=== PATIENT | male | born 1990 | race Caucasian/White ===

== ENCOUNTER 2024-04-01 11:09 | Emergency (ER) | payer OTHER, SELFPAY ==
[2024-04-01 11:19] VITALS: BP 160/79; PULSE 76; RESP 16; TEMP 37.3; O2SAT 98; BMI 22.5
--- NOTE | 2024-04-01 11:32 | CRLHL7_ITS ---
For Patients: As a result of the Cures Act, medical imaging exams and procedure reports are released immediately into your electronic medical record. You may view this report before your referring provider. If you have questions, please contact your health care provider. Indication: Fall twisted, injury Comparison: None available. Technique: AP, Lateral, and Oblique views left ankle were obtained Findings: There is no displaced fracture or dislocation. The ankle mortise is symmetrical. The talar dome is smooth and intact. The joint spaces are otherwise grossly preserved. There is moderate malleolar soft tissue swelling. Impression: Moderate malleolar soft tissue swelling without evidence of displaced fracture. Dictated by Michael Do MD @ 04/01/2024 12:38:54 PM (Electronically Signed)
--- NOTE | 2024-04-01 12:49 | ED_ITS ---
HPI - Extremity Injury (Lower) General Date Seen: 04/01/24 Chief Complaint: Extremity Pain/Injury, Lower Stated Complaint: left ankle injury Time Seen by Provider: 04/01/24 11:20 Source: patient Mode of arrival: ambulatory Limitations: no limitations History of Present Illness HPI Narrative: Patient is a 34-year-old male presenting for left ankle pain. He states he source around with a friend when he slipped and fell hurting his ankle. Denies any knee or foot pain. This happened shortly prior to arrival. All the pain is around his lateral malleolus. There is also quite a bit of swelling there. Denies any numbness. No other concerns noted. Related Data Previous Rx's ?Medication ?Instructions ?Recorded ketorolac 10 mg tablet 10 mg PO Q6H PRN pain #20 tabs 04/01/24 Allergies Allergy/AdvReac Type Severity Reaction Status Date / Time codeine Allergy Verified 04/01/24 11:18 Review of Systems Narrative: Pertinent systems reviewed and were negative unless stated in HPI PFSH PFSH Social History Smoking Status: Current every day smoker What tobacco products do you use: cigarettes Do you use any of these nicotine containing products: None Second hand tobacco smoke exposure: No How often do you have a drink containing alcohol: 2-3 times a week How many standard drinks containing alcohol do you have on a typical day: 5 or 6 How often do you have six or more drinks on one occasion: Weekly AUDIT-C Alcohol total score: 8 Non-prescribed substance use: marijuana (any form) Non-prescribed substance use details: smoked service: No Exam Narrative: Exam Narrative: Const: Well-nourished, Well-developed, in mild distress Eyes: PERRL, no conjunctival injection, and symmetrical lids HENT: Atraumatic external nose and ears. Moist mucous membranes. Removed MSK: Notable swelling noted to left ankle around the lateral malleolus. Tender to palpation around this area. No tenderness to palpation noted to rest of ankle, foot, knee on the left side. Skin: Warm, Dry. No rashes or lesions. Neuro: Normal Muscle tone, No focal neurological deficits. Psych: Awake, Alert, & Oriented x3. Appropriate mood and affect. Const: Vital Signs, click to edit/add: Vital Signs - 24 hr 04/01/24 11:19 Temperature 99.2 F Pulse Rate [Pulse Oximeter] 76 Respiratory Rate 16 Blood Pressure [Ri ght Forearm] 160/79 H Pulse Oximetry 98 Oxygen Delivery Me thod Room Air Course Vital Signs Vital signs: Initial Vital Signs Temperature 99.2 F 04/01/24 11:19 Temperature Source Temporal Artery Scan 04/01/24 11:19 Pulse Rate 76 04/01/24 11:19 Pulse Rhythm Regular 04/01/24 11:19 Respiratory Rate 16 04/01/24 11:19 Blood Pressure 160/79 H 04/01/24 11:19 Blood Pressure Mean 106 H 04/01/24 11:19 Blood Pressure Position Supine 04/01/24 11:19 Pulse Oximetry 98 04/01/24 11:19 Oxygen Delivery Method Room Air 04/01/24 11:19 Vital Signs Temperature 99.2 F 04/01/24 11:19 Pulse Rate 76 04/01/24 11:19 Respiratory Rate 16 04/01/24 11:19 Blood Pressure 160/79 H 04/01/24 11:19 Pulse Oximetry 98 04/01/24 11:19 Oxygen Delivery Method Room Air 04/01/24 11:19 Temperature 99.2 F 04/01/24 11:19 Pulse Rate 76 04/01/24 11:19 Respiratory Rate 16 04/01/24 11:19 Blood Pressure 160/79 H 04/01/24 11:19 Pulse Oximetry 98 04/01/24 11:19 Oxygen Delivery Method Room Air 04/01/24 11:19 Medications Administered Medications: Discontinued Medications Generic Name Dose Route Start Last Admin Trade Name Freq PRN Reason Stop Dose Admin Ketorolac Tromethamine 30 mg 04/01/24 12:36 04/01/24 12:45 Ketorolac 30 Mg/Ml Inj IM 04/01/24 12:37 Not Given ONCE ONE MDM - Extremity Injury (Lower) MDM Narrative Medical decision making narrative: Patient is a 34-year-old male presenting for concerns of ankle injury. Will do an x-ray for better evaluation. He is neurovascular intact. X-ray was done of just ankle is he has no other injuries. X-ray reviewed by myself and the radiologist showed no signs of fracture. There is quite a bit of malleolar soft tissue swelling consistent with physical exam. Will place an Oj wrap. Will provide Toradol for pain. He is agreeable to this plan. Patient will be discharged Imaging Data Ankle x-ray: Attestation: I have reviewed the pertinent imaging results. Radiologist's impression: Moderate malleolar soft tissue swelling without evidence of displaced fracture. Dictated by Michael Do MD @ 04/01/2024 12:38:54 PM Discharge Plan Discharge Clinical Impression: Ankle sprain and strain Patient Disposition: Home, Self-Care Condition: Stable Instructions: Ankle Sprain (DC) Additional Instructions: Wear the Oj wrap and an ankle brace as needed for comfort. You can weight bear as tolerated. Take the Toradol as needed for pain. While you are taking Toradol do not take other NSAID such as aspirin, naproxen, ibuprofen as they are same class of drugs. Can use Tylenol. Prescriptions: New ketorolac 10 mg tablet 10 mg PO Q6H PRN (Reason: pain) Qty: 20 0RF Rx Instructions: maximum total duration of 5 days from all oral, intranasal, or parenteral formulations Follow Up/Referrals: Abdiaziz Newman MD [Primary Care Provider] - Stand Alone Forms: [employer] Info Instructions
== END 2024-04-01 13:09 | disposition home or self-care (01) ==
PROVIDERS: Emergency Provider Student in an Organized Health Care Education/Training Program; PCP Family Medicine
DX: S93.402A Sprain of unspecified ligament of left ankle, initial encounter (principal); W01.0XXA Fall on same level from slipping, tripping and stumbling without subsequent striking against object, initial encounter
CPT/HCPCS: 73610; 96372; 99283; 99284